=== PATIENT | male | born 1990 | race Caucasian/White ===

== ENCOUNTER → 2016-12-27 | Outpatient (CLI) | payer MEDICARE, OTHER ==
[2016-12-27 14:31] LABS: BUN/CREATININE RATIO 16 (0-10)
== END ==
LOC: LAB 13:40
PROVIDERS: Emergency Medicine
DX: G40.89 Other seizures (principal); J30.89 Other allergic rhinitis
CPT/HCPCS: 36415; 80048; 82570

== ENCOUNTER → 2016-12-28 | Outpatient (CLI) | payer MEDICARE, OTHER | LOC: LBRF 11:39 | DX: G40.89 Other seizures (principal); J30.89 Other allergic rhinitis | CPT/HCPCS: 82043; 82570 ==

== ENCOUNTER → 2021-01-08 | Outpatient (CLI) | payer OTHER ==
[2021-01-08 13:28] LABS: HEMOGLOBIN 16.5 gm/dl (14.0-17.5); RED BLOOD COUNT 5.76 M/UL (4.20-5.50); WHITE BLOOD COUNT 8.6 K/UL (4.5-11.0)
[2021-01-08 13:44] LABS: BUN/CREATININE RATIO 14 (0-10)
== END ==
LOC: LAB 12:33
PROVIDERS: Emergency Medicine
DX: G40.89 Other seizures (principal); N18.2 Chronic kidney disease, stage 2 (mild)
CPT/HCPCS: 36415; 80053; 85025